=== PATIENT | male | born 1955 | race Hispanic/Latino ===

== ENCOUNTER 2018-11-17 14:05 | Outpatient (CLI) | payer BC ==
--- NOTE | 2018-11-17 17:00 | ULT ---
SCROTAL ULTRASOUND INCLUDING COLOR AND SPECTRAL DOPPLER IMAGIN11/17/18 HISTORY: Scrotal fullness, right testicular swelling for four months. Right testis measures 3.7 x 2.5 x 2.6 cm. Left testis measures 3.4 x 3.4 x 2.5 cm. The right epididymis appears to be enlarged. There appears to be a large multiloculated multiseptated cystic mass involving the right epididymal head region. The combined overall size of which measures approximately 2.5 x 4.5 cm in size with individual cysts within the loculation measuring up to approx imately 1.5 x 2.2 cm. There is evidence for right testicular prominent rete testis. There is a small left sided hydrocele. No evidence for intratesticular mass. Vascular duplex demonstrates arterial inflow and venous outflow without evidence for testicular torsi on. In the region of the left superior epididymis there is also some complex multiloculated cystic ch anges. The overall size of which approximates 1.5 x 1.6 cm. IMPRESSION: Large bilateral complicated multiseptated extra-testicular cystic masses primarily in the region of t he epididymal heads, evidence for extensive complicated bilateral spermatoceles, much larger on the r ight side than the left. Small left sided hydrocele. No intratesticular mass. No evidence for testicu lar torsion. POS: [facility]
== END 2018-11-17 14:06 | disposition home or self-care (01) ==
LOC: BICULT 14:05
PROVIDERS: ATTEND Family Medicine
DX: N50.89 Other specified disorders of the male genital organs (principal); N43.3 Hydrocele, unspecified; N50.3 Cyst of epididymis; N43.42 Spermatocele of epididymis, multiple
CPT/HCPCS: 76870; 93976